=== PATIENT | female | born 1980 | race Caucasian/White ===

== ENCOUNTER 2023-02-07 10:05 | Outpatient (CLI) | payer MEDICAID | END 2023-02-07 23:59 | disposition home or self-care (01) | LOC: RAD 10:05 | PROVIDERS: ATTEND Family Medicine | DX: R55 Syncope and collapse (principal) | CPT/HCPCS: 95816 ==

== ENCOUNTER 2024-01-20 13:22 | Outpatient (CLI) | payer MEDICAID | END 2024-01-20 23:59 | disposition home or self-care (01) | LOC: RAD 13:22 | PROVIDERS: ATTEND Physician Assistant | DX: M25.561 Pain in right knee (principal); M25.562 Pain in left knee; G89.29 Other chronic pain | CPT/HCPCS: 73564 ==